=== PATIENT | female | born 1985 | race Caucasian/White ===

== ENCOUNTER → 2018-11-05 | Outpatient (CLI) | payer BC ==
--- NOTE | 2018-11-05 16:36 | KCIC ---
EXAM: Pelvic sonogram. HISTORY: Menorrhagia. TECHNIQUE: Transabdominal and transvaginal sonographic imaging of the pelvis was performed. COMPARISON: None. FINDINGS: The uterus measures 8.8 x 5.9 x 4.7 cm. The endometrial stripe measures 12 abdomen thickness. The right ovary measures 3.2 x 3.0 x 1.8 cm. The left ovary measures 3.2 x 2.0 x 2.0 cm. There is normal blood flow within both ovaries. There are small bilateral ovarian follicles. There is trace simple free fluid. There is a hypoechoic lesion with internal echoes within the cervix, measuring 9 mm. IMPRESSION: 1. Endometrial stripe within normal limits for a premenopausal female. 2. 9 mm hypoechoic lesion with internal echoes involving the cervix. This demonstrates posterior through-transmission, favoring a corticated nabothian cyst rather than solid lesion. Follow-up can be performed if there is clinical concern. 2. Trace pelvic free fluid. Electronically signed by: Marta Prasad MD (11/05/2018 4:32 PM) [id number]
== END | disposition home or self-care (01) ==
LOC: KCIC US 15:18
PROVIDERS: ATTEND Nurse Practitioner Family
DX: N88.8 Other specified noninflammatory disorders of cervix uteri (principal)
CPT/HCPCS: 76830; 76856

== ENCOUNTER → 2020-12-01 | Outpatient (CLI) | payer BC ==
[~2020-12-01] MED LIST: DEXT20TA2 PO; TRAM50TA PO
== END ==
LOC: LAB 14:22
PROVIDERS: ATTEND Orthopaedic Surgery
DX: Z01.812 Encounter for preprocedural laboratory examination (principal); G56.01 Carpal tunnel syndrome, right upper limb; Z20.822 Contact with and (suspected) exposure to COVID-19
CPT/HCPCS: U0003

== ENCOUNTER 2020-12-04 10:38 | Day surgery (SDC) | payer BC ==
[~2020-12-04] VITALS: Ht 162.6 cm; Wt 95.3 kg
[~2020-12-04 10:38] MED LIST changes: +HYDROmorphone 2 MG/ML VIAL IVP PRN; +IV RINGERS,LACTATED 1000ML 1,000 ML IV SCH; +LIDOCAINE 2% PF 5 ML VIAL. ONE; +MIDAZOLAM HCL/PF 2 MG/2 ML VIAL. ONE; +MORPHINE SULFATE 2 MG/ML VIAL. IVP PRN; +PROCHLORPERAZINE 10 MG/2 ML VIAL. IVP PRN; +PROPOFOL 10 MG/ML (20ML) VIAL. IV ONE; -TRAM50TA PO; +fentaNYL PF VIAL 100 MCG/2 ML VIAL IVP PRN; +fentaNYL PF VIAL 100 MCG/2 ML VIAL ONE
[2020-12-04 10:46] LABS: BASO % 1 % (0-3); EOS # 0.2 x10^3/uL (0.0-0.7); EOS % 2 % (0-3); HEMATOCRIT 38.3 % (36.0-47.0); HEMOGLOBIN 12.9 g/dL (12.0-15.5); LYMPH # 2.4 x10^3/uL (1.0-4.8); LYMPH % 31 % (24-48); MEAN CORPUSCULAR HEMOGLOBIN 29 pg (25-35); MEAN CORPUSCULAR HGB CONC 34 g/dL (31-37); MEAN CORPUSCULAR VOLUME 87 fL (79-100); MONO # 0.5 x10^3/uL (0.0-1.1); MONO % 7 % (0-9); NEUT # 4.7 x10^3/uL (1.8-7.7); NEUT % 60 % (31-73); PLATELET COUNT 231 x10^3/uL (140-400); RED BLOOD COUNT 4.42 x10^6/uL (3.50-5.40); RED CELL DISTRIBUTION WIDTH 13.4 % (11.5-14.5); WHITE BLOOD COUNT 7.8 x10^3/uL (4.0-11.0)
[2020-12-04 10:50] LABS: CALCIUM 8.2 mg/dL (8.5-10.1); CREATININE 0.7 mg/dL (0.6-1.0); GFR 94.7; POTASSIUM 3.5 mmol/L (3.5-5.1)
[2020-12-04] MEDS ORDERED: BUPIVACAINE-EPI 0.5%-1:200000 MPF 30 ML VIAL. ONE (12:16)
[2020-12-04] MEDS ORDERED: ONDANSETRON PF 4 MG/2 ML VIAL. ONE (12:28)
[2020-12-04] MEDS ORDERED: DEXAMETHASONE SOD PHOS 4 MG/ML VIAL ONE (12:28)
[2020-12-04] MEDS ORDERED: BUPIVACAINE MPF 0.5% 30 ML VIAL. ONE (12:47)
[2020-12-04] MEDS ORDERED: fentaNYL PF VIAL 100 MCG/2 ML VIAL ONE (13:31)
[2020-12-04] MEDS: fentaNYL PF VIAL 100 MCG/2 ML VIAL IVP PRN ×3 (13:34→14:21)
[2020-12-04] MEDS ORDERED: TRAM50TA PO (13:38)
--- NOTE | 2020-12-04 13:40 | DISCH ---
DISCHARGE INSTRUCTIONS Condition on Discharge Condition on Discharge: Stable Activity After Discharge Activity Instructions for Disc: Other, see below (Avoid hard grasp but fine motor use allowed and full motion and use of elbow is strongly encouraged to keep the nerve gliding and prevent scarring) Lifting Instructions after Dis: No heavy lifting, No pulling or pushing Weight Bearing Status after Di: As tolerated Wound Incision Care Wound/Incision Care: Change dressing (May remove dressing on elbow in 4 days, would keep at least a large Band-Aid on the carpal tunnel incision at the wrist) Contacting the after DC Call your doctor for: Concerns you may have Follow-Up Follow up with: Dr. Allen or Cristiano 10 days KOKI ALLEN MD Dec 04, 2020 13:40
--- NOTE | 2020-12-04 14:09 | PDOC4 ---
Operative Note Operative Note Date of surgery: 12/04/2020 Preoperative diagnosis: Right carpal and cubital tunnel syndrome Post operative diagnosis: Same with moderate median nerve compression at carpal tunnel, moderate to severe nerve compression at cubital tunnel Operative procedure: Right carpal tunnel release, right cubital tunnel release Surgeon: Tiffany Emergency Medicine Physician: Woody altman assist Anesthesia: General Estimated blood loss: 5 cc Complications: None Operative indications: Please see my orthopedic clinic note for detailed operative indications and note that we covered the possibility of infection nerve or blood vessel damage incomplete relief and scarring affecting her recovery with incisional tenderness and the rationale for release based on her clinical findings and EMG examination. She wishes to proceed with surgical evaluation and treatment. Operative text: Patient was identified procedure verified patient placed in the supine position on the operating table. After adequate amounts of general anesthesia were administered the right upper extremity was prepped and draped in standard sterile fashion with an upper arm tourniquet. After timeout was performed patient procedure identified and verified right upper extremity was exsanguinated by Esmarch bandage tourniquet inflated to 300 mmHg and a longitudinal incision was made just distal to the distal wrist crease dissection carried out down to the transverse carpal ligament which was sharply divided along its ulnar aspect with a scalpel. The proximal and distal extent was further divided with small blunt tipped Metzenbaum scissors. Complete release was verified both visually and palpably flexor tendons were noted to be intact with no sign of synovitis and median nerve was noted to have moderate nerve compression. Attention was then turned to the right elbow where a curvilinear incision was made medially to access the cubital tunnel. Sharp dissection was carried out to open the cubital tunnel from proximal to distal extending from the intermuscular septum proximally through the extent of the cubital tunnel itself and extending into the penetration into the flexor pronator musculature. Bleeding points were controlled by electrocautery and the elbow was flexed and extended to ensure no subluxation or instability of the nerve. It was therefore decompressed in situ only without transposition. Ulnar nerve was noted to have moderate to severe nerve compression particularly at the inlet and outlet areas of the cubital tunnel where it was released. There irrigation carried out normal saline solution of both incisions. The elbow was closed with buried Vicryl suture skin closure with nylon. Carpal tunnel closure with nylon suture in a vertical mattress fashion. Sterile soft compressive dressings were placed both the wrist and elbow fingers were noted be warm pink following deflation of the tourniquet patient was returned to recovery room stable condition having tolerated procedure well. Woody altman assist was present for the procedure assisted in prepping draping retraction closure and dressings KOKI BAUTISTA MD Dec 04, 2020 14:09
[2020-12-04 14:45] VITALS: BP 91/55
== END 2020-12-04 15:21 | disposition home or self-care (01) ==
LOC: SURG 10:38
PROVIDERS: ATTEND Orthopaedic Surgery
DX: G56.01 Carpal tunnel syndrome, right upper limb (principal); G56.21 Lesion of ulnar nerve, right upper limb; F90.9 Attention-deficit hyperactivity disorder, unspecified type; Z98.890 Other specified postprocedural states; Z98.51 Tubal ligation status; Z79.899 Other long term (current) drug therapy; Z88.8 Allergy status to other drugs, medicaments and biological substances
CPT/HCPCS: 36415; 64718; 64721; 80048; 81025; 85025; A4930; A6402; A6450; J0690; J1100; J2250; J2405; J2704; J3010; J3490; A4657; A6452